=== PATIENT | female | born 1985 | race Caucasian/White ===

== ENCOUNTER 2020-02-08 00:50 | Emergency (ER) | payer OTHER ==
[~2020-02-08] VITALS: Ht 157.5 cm; Wt 64.0 kg
--- NOTE | 2020-02-08 01:15 | NUR ---
WHILE MD BALDERAS PT/ PT STARTED VOMITING AND URINATED ON SELF. PT UP TO RESTROOM TO OBTAIN SPECIMEN.
--- OUTSIDE RECORDS SUMMARY | 2020-02-08 01:55 | XMS REPORT | Continuity of Care Document ---
Author Author [facility] Organization [facility] Address [address] [place] [address] Phone Unavailable Care Team Providers Care Clothing Presser Name Role Phone Nona YIP, Dayanna Mtz PCP Unavail able DAYANNA URIAS Attphys Unavailabl e ESTHELA, DEON Attphys Unavailable MICHELLEAZEALBrook, DAYANNA MTZ Admphys Unavailabl e Problems Condition Name Condition Details Condition Category Status Onset Date Resolution Date Last Treatment Date Treating Clinician Comments Source Meconium in amniotic fluid affecting management of mot her, delivered Meconium in amniotic fluid affecting management of mother, delivered Disease Act desiree 2018-08-19 00:00:00 [facility] Disease Active 2018-08-18 00:00:00 [facility] 29 weeks gestation of 29 weeks gestation of Dis ease Active 2018-06-11 00:00:00 [facility] Migraine without aura Migraine without aura Disease Active 201 01-21-31 00:00:00 [facility] Allergies, Adverse Reactions, Alerts This patient has no known allergies or adverse reactions. Family History Family Member Diagnosis Comments Start Date Stop Date Source Maternal grandmother Migraines [facility] Natural mother Migraines [facility] Social History Social Habit Start Date Stop Date Quantity Comments Source Sex Assigned At [facility] Smoking Status Start Date Stop Date Source Never smoker [facility] Medications Ordered Medication Name Filled Medication Name Start Date Stop Da te Current Medication? Ordering Clinician Indication Dosage Frequency Signature (SIG) Comments Components Source vits96/iron fum/folic ( VITAMIN W/IRON-FOLATE) 27 mg iron- 800 mcg Tab 2018-06-11 19:17:33 Yes 1{tbl} QD Doc e 1 tablet by mouth daily. [facility] Procedures This patient has no known procedures. Results Test Description Test Time Test Comments Results Result Comments Source HEPATITIS B SURFACE ANTIGEN 2018-08-18 21:02:00 Test Item HEPATITIS B SURFACE ANTIGEN (2) (BEAKER) (test code = 2585) Nonreactive Nonreactive CBC W/PLT COUNT & AUTO [id number] 20:03:00* Test Item Value Reference Range Interpretation Comments WHITE BLOOD CELL COUNT (BEAKER) (test code = 775) 16.3 K/ L 4.0- 10.0 H RED BLOOD CELL COUNT (BEAKER) (test code = 761) 4.30 M/ L 4.00-5 .00 HEMOGLOBIN (BEAKER) (test code = 410) 12.8 GM/DL 12.0-15.5 HEMATOCRIT (BEAKER) (test code = 411) 38.7 % 36.0-46.0 MEAN CORPUSCULAR VOLUME (BEAKER) (test code = 753) 90.0 fL 82. 0-99.0 MEAN CORPUSCULAR HEMOGLOBIN (BEAKER) (test code = 751) 29.8 pg 27.0-33.0 MEAN CORPUSCULAR HEMOGLOBIN CONC (BEAKER) (test code = 752) 33.1 GM/DL 32.0-36.0 RED CELL DISTRIBUTION WIDTH (BEAKER) (test code = 412) 13.4 % 12.0-15.0 PLATELET COUNT (BEAKER) (test code = 756) 266 K/CU MM 150-430 MEAN PLATELET VOLUME (BEAKER) (test code = 754) 10.1 fL 6.0-11 .5 MPV- Approximately 20% positive bias due to method change. NUCLEATED RED BLOOD CELLS (BEAKER) (test code = 413) 0 /100 WBC 0 -0 NEUTROPHILS RELATIVE PERCENT (BEAKER) (test code = 429) 81 % LYMPHOCYTES RELATIVE PERCENT (BEAKER) (test code = 430) 10 % MONOCYTES RELATIVE PERCENT (BEAKER) (test code = 431) 5 % EOSINOPHILS RELATIVE PERCENT (BEAKER) (test code = 432) 0 % BASOPHILS RELATIVE PERCENT (BEAKER) (test code = 437) 1 % NEUTROPHILS ABSOLUTE COUNT (BEAKER) (test code = 670) 13.24 K/ L 1.80-8.00 H LYMPHOCYTES ABSOLUTE COUNT (BEAKER) (test code = 414) 1.64 K/ L 1.48-4.50 MONOCYTES ABSOLUTE COUNT (BEAKER) (test code = 415) 0.88 K/ L 0. 00-1.30 EOSINOPHILS ABSOLUTE COUNT (BEAKER) (test code = 416) 0.02 K/ L 0.00-0.50 BASOPHILS ABSOLUTE COUNT (BEAKER) (test code = 417) 0.09 K/ L 0. 00-0.20 IMMATURE GRANULOCYTES-RELATIVE PERCENT (BEAKER) (test code = 2801) 2 % 0-0 H URINALYSIS WITH MICROSCOPIC IF [id number] 20:11:00* Test Item Value Reference Range Interpretation Comments COLOR (BEAKER) (test code = 470) Light Yellow CLARITY (BEAKER) (test code = 469) Clear SPECIFIC GRAVITY UA (BEAKER) (test code = 468) 1.005 1.001-1 .035 PH UA (BEAKER) (test code = 467) 7.0 5.0-8.0 PROTEIN UA (BEAKER) (test code = 464) Negative Negative GLUCOSE UA (BEAKER) (test code = 365) 150 mg/dL Negative A KETONES UA (BEAKER) (test code = 371) Negative Negative BILIRUBIN UA (BEAKER) (test code = 462) Negative Negative BLOOD UA (BEAKER) (test code = 461) Negative Negative NITRITE UA (BEAKER) (test code = 465) Negative Negative LEUKOCYTE ESTERASE UA (BEAKER) (test code = 466) Negative Negat desiree UROBILINOGEN UA (BEAKER) (test code = 463) < mg/dL 0.2-1.0 SOURCE(BEAKER) (test code = 2795) URINALYSIS W/ [id number] 08:46:00* Test Item Value Reference Range Interpretation Comments COLOR (BEAKER) (test code = 470) Light Yellow CLARITY (BEAKER) (test code = 469) Clear SPECIFIC GRAVITY UA (BEAKER) (test code = 468) 1.005 1.001-1 .035 PH UA (BEAKER) (test code = 467) 7.0 5.0-8.0 PROTEIN UA (BEAKER) (test code = 464) Negative Negative GLUCOSE UA (BEAKER) (test code = 365) Negative Negative KETONES UA (BEAKER) (test code = 371) Negative Negative BILIRUBIN UA (BEAKER) (test code = 462) Negative Negative BLOOD UA (BEAKER) (test code = 461) Negative Negative NITRITE UA (BEAKER) (test code = 465) Negative Negative LEUKOCYTE ESTERASE UA (BEAKER) (test code = 466) Negative Negat desiree UROBILINOGEN UA (BEAKER) (test code = 463) < mg/dL 0.2-1.0 RBC UA (BEAKER) (test code = 519) < /HPF WBC UA (BEAKER) (test code = 520) 1 /HPF MUCUS (BEAKER) (test code = 1574) Rare SQUAMOUS EPITHELIAL (BEAKER) (test code = 516) < /HPF SOURCE(BEAKER) (test code = 2795)
--- OUTSIDE RECORDS SUMMARY | 2020-02-08 01:55 | XMS REPORT | Clinical Summary ---
Author Author [facility] Address Unknown Phone Unavailable Care Team Providers Care Android Platform Developer Name Role Phone Rose Castellano MD PCP Unavail able Allergies No Known Allergies Medications End Date Status Medication Sig Dispensed Refills Start Date Active vits96/iron Take 1 tablet 0 fum/folic ( by mouth VITAMIN W/IRON-FOLATE) 27 daily. mg iron- 800 mcg Tab Active Problems Problem Noted Date Meconium in amniotic fluid affecting management of mo ther, delivered 08/19/2018 08/18/2018 29 weeks gestation of 06/11/2018 Migraine without aura 06/11/2018 Family History Medical History Relation Name Comments Migraines Maternal Grandmother Migraines Mother Relation Name Status Comments Maternal Grandmother Mother Social History Date Tobacco Use Types Packs/Day Years Used Never Smoker Smokeless Tobacco: Never Used Alcohol Use Drinks/Week oz/Week Comments No Sex Assigned at Date Recorded Not on file Industry Job Start Date Occupation Not on file Not on file Not on file Travel End Travel History Travel Start No recent travel history available. Last Filed Vital Signs Not on file Plan of Treatment Not on file Results Not on fileafter 02/07/2019 Insurance Payer Benefit Subscriber ID Type Phone Address Plan / Group [employer] - [employer] CARE CIG[employer] xxxxxxxxxxx HMO/POS HMO/POS/OP EN ACCESS [id number] Advance Directives For more information, please contact: [place] [address] [address] Date Inactivated Comments Code Status Date Activated 08/20/2018 6:59 PM Full Code 08/18/2018 7:06 PM This code status was determined by: Patient 08/18/2018 7:06 PM Full Code 08/18/2018 6:58 PM This code status was determined by: Patient 08/18/2018 6:27 PM Full Code 06/11/2018 7:14 PM This code status was determined by: Patient
--- NOTE | 2020-02-08 02:05 | NUR ---
MD DID US TO LOOK AT BLADDER. STATES SOME URINE IN BLADDER BUT NOT ALOT AND PT IS A-SYMPTOMATIC NOW.
[2020-02-08 02:15] VITALS: BP 114/71
--- NOTE | 2020-02-08 02:47 | Emergency Department Note ---
History of Present Illnes History of Present Illness Chief Complaint: Genitourinary History of Present Illness This is a 34 year old female with a complaint of urinary retention for one hour. Patient is at 13 weeks. She is getting care and has had a ultrasound which was normal. Ab0. Similar episode with prior requiring Katz catheter to uterus obstructing ureter. No hematuria and no dysuria. Patient states that she was symptom-free until 1 hour ago. She denies any jzxk-iin-vwlrmtl medications. She is taking Zofran for hyperemesis gravidarum, however denies any other prescription medications. Historian: Patient Arrival Mode: Car Grinder Required: No Onset (how long ago): hour(s) (1) Severity: moderate Onset quality: sudden Duration (how long): hour(s) (1) Progression: worsening Context: Reports other (); Denies recent illness, Denies recent travel, Denies trauma/injury Relieving factors: none Exacerbating factors: none Associated symptoms: Denies confusion, Denies chest pain, Denies cough, Denies fever/chills, Denies nausea/vomiting Treatments prior to arrival: none Past Medical/Family History Physician Review I have reviewed the patient's past medical and family history. Any updates have been documented here. Past Medical History Recent Fever: No Clinical Suspicion of Infectio: No New/Unexplained Change in Ment: No Past Medical History: None Past Surgical History: None Social History Smoking Cessation: Never Smoker Alcohol Use: None Any Illegal Drug Use: No Physically hurt or threatened: No Other Any Pre-Existing Lines (PICC,: No Review of Systems Review of Systems Constitutional: Reports no symptoms EENTM: Reports no symptoms Cardiovascular: Reports no symptoms Respiratory: Reports no symptoms Gastrointestinal: Reports nausea, Reports vomiting (Hyperemesis Gravidarum) Genitourinary: Reports as per HPI Musculoskeletal: Reports no symptoms Integumentary: Denies rash Neurological: Reports no symptoms Psychological: Reports no symptoms Endocrine: Reports no symptoms Hematological/Lymphatic: Reports no symptoms Physical Exam Related Data Triage Vital Signs Vital Signs Date Time Temp Pulse Resp B/P (MAP) Pulse Ox O2 Delivery O2 Flow Rate FiO2 02/08/20 01:05 99.0 100 18 114/71 100 Room Air Physical Exam CONSTITUTIONAL Constitutional: Present well-developed, Present well-nourished HENT HENT: Present normocephalic, Present atraumatic, Present oropharynx clear/moist, Present nose normal HENT L/R: Present left ext ear normal, Present right ext ear normal EYES Eyes: Reports PERRL, Reports conjunctivae normal NECK Neck: Present ROM normal PULMONARY Pulmonary: Present effort normal, Present breath sounds normal CARDIOVASCULAR Cardiovascular: Absent regular rhythm, Absent irregular rhythm, Absent heart sounds normal, Absent intact distal pulses, Absent capillary refill normal, Absent normal rate, Absent tachycardia, Absent bradycardia, Absent murmur, Absent gallop, Absent friction rub, Absent palpable pulses, Absent strong pulses, Absent weak pulses, Absent LLE edema, Absent RLE edema, Absent other GASTROINTESTINAL Abdominal: Present soft, Present nontender, Present bowel sounds normal, Present other (distended bladder) GENITOURINARY Genitourinary: Present exam deferred SKIN Skin: Present warm, Present dry MUSCULOSKELETAL Musculoskeletal: Present ROM normal NEUROLOGICAL Neurological: Present alert, Present oriented x 3, Present no gross motor or sensory deficits PSYCHOLOGICAL Psychological: Present mood/affect normal, Present judgement normal Results Laboratory Laboratory comments UA ngegative Procedures FAST Exam Additional comments bedside US limited to urinary bladder measurements done by me showed bladder volume of 103 mL. Assessment & Plan Medical Decision Making MDM The patient presented with urinary retention type symptoms for one hour. During the emergency room she was able to urinate which resolved her symptoms. The patient is taking Zofran which could possibly be the cause of her urinary retention not only during this but with her prior which she states she was taking "a bunch of Zofran" for morning sickness. A postvoid residual ultrasound was performed which showed approximately 100 mL of fluid retained in the bladder. As discussed with the patient a possible Katz, but giving the patient was asymptomatic, the discomfort of the Katz, and the increased risk of urinary tract infection the patient denied a Katz catheter. She was given strict return precautions and will follow up promptly with her field recruiter. Instructed to limit Zofran to the extent possible. Reassessment Reassessment The patient had a episode of nausea and vomiting during my exam, causing her to have some incontinence. At this point she went to the bathroom and was able to urinate and provide a sample of urine. She returned to the room and was asymptomatic's since the urinating. She remained a Zithromax throughout her emergency room stay. Assessment & Plan Final Impression: (1) Hyperemesis gravidarum (2) Urinary retention Depart Disposition: HOME, SELF-CARE Last Vital Signs Date Time Temp Pulse Resp B/P (MAP) Pulse Ox O2 Delivery O2 Flow Rate FiO2 02/08/20 01:05 99.0 100 18 114/71 100 Room Air RENEA HOLLAND MD Feb 08, 2020 02:11
== END 2020-02-08 02:15 | disposition home or self-care (01) ==
LOC: FSED 01:52
DX: O26.91 Pregnancy related conditions, unspecified, first trimester (principal); O21.0 Mild hyperemesis gravidarum; R33.9 Retention of urine, unspecified
CPT/HCPCS: 81003; 81025; 99282